=== PATIENT | male | born 1950 | race Two or more races ===

== ENCOUNTER 2017-02-15 12:27 | Inpatient (IN) | payer BC ==
--- NOTE | ~2017-02-15 | DS ---
Discharge Summary [facility] [address] [place]. [address] NAME: MILENA PRETTY : 50 STATUS : DIS IN PAT#: [id number] AGE: 66 ADM/REG DATE : 02/15/17 MR#: [id number] REPORT SERV DATE: 02/19/17 DICTATED BY: SYEDA MORENO DATE: 02/18/17 REPORT STATUS : Draft TRANSCRIBED BY: MODDivina DATE: 02/18/17 ADMISSION DATE: 02/15/2017 DISCHARGE DATE: 02/18/2017 DIAGNOSES OF DISCHARGE: 1. Likely nasal vestibulitis with abscess and cellulitis, improving and resolving with medical treatment. 2. Diabetes type 2, insulin dependent. 3. Hypertension. 4. Hyperlipidemia. 5. Obesity. CONSULTANTS ON THE CASE: Dr. Blane Liu. PROCEDURES DONE DURING THIS HOSPITALIZATION: None. TESTS DONE DURING THIS HOSPITALIZATION: Include the face CT performed on 02/15/2017 showing a 6.6 cm/3 cm focal regional soft tissue thickening with ill-defined borders anterior to the maxilla that encases the anterior nasal spine. There is a small erosion along the left side of the nasal spine with diagnoses differential including infection, inflammation, or carcinoma. Biopsy has been recommended. Mild sinusitis and prior dental surgery with reimplantation of the tooth that has been a screw extending into the left maxillary sinus. Also, the patient did have blood cultures that have been performed on admission, which remain negative at discharge. Nasal cultures grew extremely sparse growth of staph species agglutinate negative likely colonization. Also, his hemoglobin A1c was 6.7. His procalcitonin level was less than 0.05. His lactate level was 1.9, white count was 17.3 at admission and 13.2 at discharge. INR 1.2. HOSPITAL COURSE: This is a very pleasant 66 years old gentleman, who is a patient of Dr. Garo Mckeon, his primary care provider, presenting to [facility] with sudden onset of facial swelling, tenderness, and also some intermittent drainage from the left nasal vestibule, purulent in nature that has been progressing over the couple of days prior to admission. He went to the emergency room, where he has been found to have extensive anterior and midfacial pain around the columella of the nose in the nasal vestibular spine and the area of the maxillary spine as well. He underwent a CT scan in the emergency room showing some bone involvement around the paranasal sinus area and the crest. He has been placed on antibiotics Zosyn and vancomycin, and admitted to Hospitalist Service for further evaluation and treatment. For further details, please see history and physical of Dr. Daniel Douglas. The patient has been seen in consult by ENT, Dr. Blane Liu, who evaluated the patient and after reviewing the patient as well as the CT scan and with clinical symptoms and imaging. He suspected that the patient has an acute nasal vestibular abscess that is draining and resolving with medical treatment and initially IV antibiotics. Some mupirocin ointment has been added to the nasal vestibule b.i.d. and recommendation for him was to allow the inflammation and infections to cool down and reassess the area to ensure that the areas of the bony changes and edema noted on the CT scan were just inflammatory related and he has been planing to follow up in his office as an outpatient. On 02/18/2017, the patient Discharge Summary [address] [address] NAME: JONOCECILMILENA MCCULLOUGH : 50 STATUS : DIS IN PAT#: [id number] AGE: 66 ADM/REG DATE : 02/15/17 MR#: [id number] REPORT SERV DATE: 02/19/17 DICTATED BY: SYEDA MORENO DATE: 02/18/17 REPORT STATUS : Draft TRANSCRIBED BY: BJ DATE: 02/18/17 has been ready for discharge home from the ENT standpoint with followup during this week in his office. MEDICATIONS AT DISCHARGE: Would include his home medications, which are aspirin 81 p.o. daily, Januvia 100 p.o. daily, also Flonase nasal spray two sprays each nostril b.i.d., Amaryl 4 mg p.o. daily, metformin 500 p.o. daily, Levemir 35 units at bedtime, lisinopril 10 mg p.o. daily, Bactroban, mupirocin nasal ointment apply to nasal vestibule with Q-tip b.i.d. for 14 days, Prilosec 40 mg p.o. daily, Pravachol 40 mg p.o. daily, Lyrica 150 p.o. three times a day, Spiriva HandiHaler one inhalation daily, Atarax 50 mg p.o. daily, metformin 1000 p.o. with breakfast and supper, Symbicort two puff inhalations b.i.d., betaxolol 20 mg p.o. daily, indapamide 1.25 mg p.o. daily, alpha lipoic acid 200 p.o. t.i.d., multivitamins. Also, the patient is going to be discharged on Augmentin 875 mg p.o. b.i.d. for 10 days, Bactrim double strength one tablet p.o. b.i.d. for 10 days and mupirocin ointment apply to nasal vestibule with Q-tip b.i.d. for 14 days, hydrocodone APAP 5/325 mg one tablet every four hours p.r.n. pain. We will arrange primary care provider followup with Dr. Garo Mckeon, PCP, in one week after discharge as well as followup appointment with Dr. Blane Liu, ENT, this week on Saturday per ENT recommendation. That has been discussed extensively with the patient. All the questions have been answered in full. I have spent more than 30 minutes at discharging the patient, Wendy Yao, medication reconciliation, discharge summary, discharge instruction, and written prescriptions as well. CF/MODL Syeda Moreno M.D. / [id number] CC: Margo Bond M.D.
--- NOTE | ~2017-02-15 | CN ---
Consultation Report [facility] [address] [facility] [place]. [address] NAME: MILENA PRETTY : 50 STATUS : ADM IN [facility]#: [id number] AGE: 66 ADM/REG DATE : 02/15/17 MR#: [id number] REPORT SERV DATE: 02/16/17 DICTATED BY: BERT HOUSE DATE: 02/16/17 REPORT STATUS : Draft TRANSCRIBED BY: BJ DATE: 02/16/17 HOSPITAL CONSULTATION DATE OF CONSULTATION: 02/16/2017 CHIEF COMPLAINT: Facial cellulitis, nasal vestibulitis with abscess. HISTORY OF PRESENT ILLNESS: 66-year-old [place] gentleman, who had a sudden onset of facial swelling and tenderness, also with some intermittent drainage from the left nasal vestibule purulent in nature. This progressed over the next several days and he was additionally seen in the emergency room, where he was noted to have exquisite anterior mid facial pain around the columella of the nose in the nasal vestibular spine, area of the maxillary spine. He underwent CT scanning in the emergency room showing some bony involvement around the paranasal sinus area in the nasal crest. There was also ring enhancing hypodensity right at the maxillary spine. He was started on vanc and Zosyn and home medications including those for his diabetes. He was admitted for observation. PAST MEDICAL HISTORY: Hyperlipidemia, obesity, COPD, diabetes, hypercholesterolemia. MEDICATIONS: Aspirin, B complex, Betaxolol, budesonide, fluticasone, glimepiride, hydralazine, indapamide, insulin, lisinopril, metformin, omeprazole, pravastatin, pregabalin, sitagliptin or Januvia and tiotropium bromide inhaler. ALLERGIES: NO KNOWN DRUG ALLERGIES. SOCIAL HISTORY: Lives with his . History of tobacco use, but none currently. No alcohol or illicit drug use. FAMILY HISTORY: Noncontributory. REVIEW OF SYSTEMS: Nasal tenderness, improved. PHYSICAL EXAMINATION: GENERAL: He is a pleasant gentleman, in no acute distress. He is obese. VITAL SIGNS: Blood pressure 120/90, pulse is 94, respirations 18, and temperature 99. HEENT: In general, his ears are normal. His nose has some crusting bilaterally more on the left side than on the right, with some mild erythema, and tenderness along the columella in the floor of the left nasal vestibule. There is caking and drying of purulent crusting along the floor of the left nasal vestibule in the cartilaginous caudal septum. There is some edema at the maxillary crest and with bimanual palpation of the upper lip at the columella maxillary crest that is slightly tender, but much improved by his report compared to yesterday and the day before. His throat is clear. NECK: His neck is nontender without adenopathy. Consultation Report [place] [id number] [facility] [place]. [address] NAME: MILENA PRETTY : 50 STATUS : ADM IN [facility]#: [id number] AGE: 66 ADM/REG DATE : 02/15/17 MR#: [id number] REPORT SERV DATE: 02/16/17 DICTATED BY: BERT HOUSE DATE: 02/16/17 REPORT STATUS : Draft TRANSCRIBED BY: BJ DATE: 02/16/17 DIAGNOSTIC DATA: CT scan of the sinus as mentioned in the CT report appears to be related to inflammation and abscess, and there is some maxillary sinus inflammation as well. White blood cell count from today is pending. IMPRESSION: A 66-year-old male, with diabetes, hyperlipidemia, obesity, and sudden onset of facial swelling, with clinical symptoms and imaging consistent with an acute nasal vestibular abscess that is draining and resolving with medical therapy, vancomycin and Zosyn. I recommend continuing with this and adding mupirocin ointment to the nasal vestibule b.i.d. into both sides. I would allow for the inflammation and infection to cool down and then reassess this area to ensure the areas of bony changes and edema noted on the CT scan or just inflammatory related and this can be followed up in the office as an outpatient. PH/MODL Bert House M.D. / [id number] CC: Margo Bond JON H.
--- NOTE | ~2017-02-15 | HP ---
History And Physical [place] [id number] [place]. [address] NAME: MILENA PRETTY : 50 STATUS : ADM IN [facility]#: [id number] AGE: 66 ADM/REG DATE : 02/15/17 MR#: [id number] REPORT SERV DATE: 02/15/17 DICTATED BY: ARPITA DUTTON DATE: 02/15/17 REPORT STATUS : Draft TRANSCRIBED BY: BJ DATE: 02/15/17 DATE OF ADMISSION: 02/15/2017 REASON FOR ADMISSION: Facial cellulitis. HISTORY OF PRESENT ILLNESS: This is a 66-year-old white male, [place], who lives in the [place] here now. 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 He has a son who has a girl from [place]. He lives in [place]. He has had about four days history of left facial swelling. He woke with terrible pain in the anterior face around the orbit on the left side. He came to the emergency room. He is seen by Donald, nurse practitioner, in the emergency room and subjected to CT scan of the orbits, was found to have some bony involvement in the paranasal area. He was started on IV antibiotics in the emergency room and the hospital service was called to assist with admission for continued treatment and further things that may be necessary for the resolution of this problem. PAST MEDICAL HISTORY: He has longstanding history of hyperlipidemia and obesity. He does have COPD and quit smoking cigarettes in the past. MEDICATIONS: His home medications are being identified now. He does admit to pravastatin and fish oil for his hyperlipidemia. He does have diabetes. Those medications will be identified. He is a patient Dr. Garo Mckeon. SOCIAL HISTORY: He is , lives with . They have grandchildren. He quit smoking cigarettes several years ago after smoking for a long time. He worked with [employer] and was consumer of tobacco products in the past. No alcohol history given. He does not attend the [employer] nor have any spiritual thoughts. FAMILY HISTORY: He has one son who is alive and well. He had one sister who is . Diabetes and high blood pressure ran in the family. REVIEW OF SYSTEMS: No chest pain or shortness of breath, only facial pain, swelling around the eye, no double vision. No bad teeth; however, he does have dental implants. No diarrhea, abdominal complaints, vomiting, or nausea. He does not know any fever or chills. His white count was up to 17,000. No anemia or other chronic illnesses are related. The remainder of the review of systems is negative. PHYSICAL EXAMINATION: GENERAL: Obese, white [place] male in no acute distress. VITAL SIGNS: Blood pressure initially 120/90 with a heart rate of 94, respiratory rate 18, oxygen saturation 92%. His temperature was 99.0 initially. Vancomycin will be given in the emergency room. HEENT: EOMI. Sclerae clear. Conjunctivae pink. Pupils are round and reactive to light. History And Physical [address] [address] NAME: MILENA PRETTY : 50 STATUS : ADM IN [facility]#: [id number] AGE: 66 ADM/REG DATE : 02/15/17 MR#: [id number] REPORT SERV DATE: 02/15/17 DICTATED BY: ARPITA DUTTON DATE: 02/15/17 REPORT STATUS : Draft TRANSCRIBED BY: BJ DATE: 02/15/17 He does have periorbital edema on the left side. Pharynx is clear. He has good dentition, though the information is he had dental implants. NECK: No bruit. No JVD. CHEST: Clear to A and P. HEART: Regular S1, S2 without murmur, gallop, or click. ABDOMEN: Firm. No landmarks are palpable. Bowel sounds are positive. EXTREMITIES: Have 1+ pitting edema at the ankles bilaterally with distal pulses that are not palpable through the dorsalis pedis, posterior tibial. NEUROLOGIC: He withdraws to plantar stimulation. Drilling Inspector equal and symmetric bilaterally. Coordination intact. No tremor. He is able to stand and walk unaided. His ufpymk-us-[id number] exam and rapid alternating movements are intact bilaterally. Sensory and motor are grossly intact bilaterally. LYMPHATICS: There is no adenopathy. Tonsils are normal midline in the midline. There is a 6 x 3 focal region of soft tissue thickening in the ill-defined borders anterior to the maxilla that encases the anterior nasal spine. There is erosion along the left subnasal spine. Biopsy is recommended. There were no additional masses or lesions or adenopathy. He has mild sinusitis with obstruction of the infundibulum of the ostial-meatal complex. Prior dental implants with a screw extending into the left maxillary sinus. LABORATORY DATA: Lactate was 1.9. The BMP showed a glucose of 241, sodium 140, potassium 3.7, chloride 100, CO2 33, BUN 14, creatinine 1.04, calcium was 9, white count 17.3 thousand, hemoglobin 12.9, hematocrit 38.0, and the platelet count was 202,000, INR 1.2. ASSESSMENT: 1. Facial cellulitis with nasal sinus bony involvement. 2. Possible nasal tumor versus infection. 3. Leukocytosis consistent with infection. 4. Hypertension. 5. Diabetes type 2, uncontrolled. Blood sugar 241. 6. Chronic obstructive pulmonary disease from cigarette smoking, number reformed. 7. Hyperlipidemia, on pravastatin and fish oil. PLAN: Treat with broad-spectrum antibiotics including vancomycin and anti-Pseudomonas drug, will choose Zosyn if not penicillin allergic. Consult ENT for possible nasal bone biopsy. He desires to know the length of time he would be in the hospital. I believe, probably at least three days of IV antibiotics initially and assess response. DB/MODL Arpita Dutton M.D. / [id number] History And Physical [address] [address] NAME: MILENA PRETTY : 50 STATUS : ADM IN [facility]#: [id number] AGE: 66 ADM/REG DATE : 02/15/17 MR#: [id number] REPORT SERV DATE: 02/15/17 DICTATED BY: ARPITA DUTTON DATE: 02/15/17 REPORT STATUS : Draft TRANSCRIBED BY: MODL DATE: 02/15/17 CC: Margo Villegas JON H. [facility], M.D.
[2017-02-15 11:04] LABS: BASOPHILS 0.1 %; BASOPHILS ABSOLUTE 0.01 10/3/uL (0.0-0.16); EOSINOPHILS 2.2 %; EOSINOPHILS ABSOLUTE 0.39 10/3/uL (0.0-0.53); HEMOGLOBIN 12.9 g/dL (13.6-17.8); IMMATURE GRANULOCYTES 0.5 %; IMMATURE GRANULOCYTES ABSOLUTE 0.09 10/3/uL (0.0-0.11); LYMPHOCYTES ABSOLUTE 1.38 10/3/uL (0.67-4.30); MEAN CORPUS HGB CONC 33.9 g/dL (32.0-36.0); MEAN CORPUSCULAR HEMOGLOB 32.4 pg (26.0-34.0); MEAN CORPUSCULAR VOLUME 95.5 fL (80-100); MEAN PLATELET VOLUME 11.9 fL (9.2-13.0); MONOCYTES 5.8 %; NEUTROPHILS 83.4 %; NEUTROPHILS ABSOLUTE 14.47 10/3/uL (2.02-8.40); NUCLEATED RED BLOOD CELLS 0.1 /100WBC (0-0); PLATELET COUNT 202 10/3/uL (150-400); RBC DISTRIBUTION WIDTH 18.2 % (12.0-16.0); RED CELL COUNT 3.98 10/6/uL (4.7-6.1)
[2017-02-15 11:05] LABS: ER CBC TAT 0 Hrs 10 Mins; MANUAL DIFF NO %; WHITE BLOOD CELLS 17.3 10/3/uL (4.5-10.5)
[2017-02-15 11:10] LABS: INTERNATIONAL NORMAL RATI 1.2 UNITS (-); PARTIAL THROMBO TIME 36.8 SEC (22.5-37.2); PROTIME (NOT ORD) 14.7 SEC (12.0-14.5)
[2017-02-15 11:15] LABS: CHLORIDE, SERUM 100 MMOL/L (96-112); CREATININE 1.04 MG/DL (0.70-1.30); GFR AFRICAN AMERICAN 86 ML/MIN (>=60); GFR NON AFRICAN AMERICAN 74 ML/MIN (>=60); POTASSIUM, SERUM 3.7 MMOL/L (3.5-5.3); SODIUM, SERUM 140 MMOL/L (135-148)
[2017-02-15 11:16] LABS: BUN (BLOOD UREA NITROGEN) 14 MG/DL (6-23); CO2 (CARBON DIOXIDE) 33 MMOL/L (24-34); GLUCOSE, SERUM 241 MG/DL (60-99)
[2017-02-15 11:20] LABS: LACTATE 1.9 MMOL/L (0.3-2.4)
[~2017-02-15 12:27] MED LIST: AMARYL2 PO; ASAB PO; ATARAX50B PO; FESO4 PO; FISH-EPA1000 MG PO; FLOMAX4; FLONASE NAS; GLUCPH8 PO; IRON325 MG PO; JANUVIA100 MG PO; LEVEMIR SC; LORTAB 5; LOZOLTAB PO; LYRICA100 MG PO; MAALOX PO; MICRO-K10 MEQ PO; MIRALAXPKT PO; NORCO1 TA1 PO; P20 PO; PRAVACHOL40 MG PO; PRIN10 PO; PROAIR HFA INH; SOLARAZE3 %/W TOP; SPIRIVA INH; SURBEX/C1 TAB PO; SYMBICORT 160/41 INH INH; [UNRECOGNIZED DRUG - CODE] PO; [UNRECOGNIZED DRUG - OTHER] PO
[2017-02-15] MEDS ORDERED: GLUCOPHAGE1000 MG PO (13:04)
[2017-02-15] MEDS ORDERED: GLUCPH PO (13:04)
[2017-02-15] MEDS ORDERED: JANUVIA100 MG PO (13:05)
[2017-02-15] MEDS ORDERED: AMARYL4 PO (13:05)
[2017-02-15] MEDS ORDERED: INDAPAMIDE1.25 MG PO (13:08)
[2017-02-15] MEDS ORDERED: [UNRECOGNIZED DRUG - CODE] PO (13:08)
[2017-02-15] MEDS ORDERED: PRIN10 PO (13:08)
[2017-02-15] MEDS ORDERED: LEVEMIR SC (13:08)
[2017-02-15] MEDS ORDERED: SYMBICORT 160/41 INH INH (13:09)
[2017-02-15] MEDS ORDERED: ASAB PO (13:09)
[2017-02-15] MEDS ORDERED: SPIRIVA INH (13:09)
[2017-02-15] MEDS ORDERED: PRAVACHOL40 MG PO (13:09)
[2017-02-15] MEDS ORDERED: LYRICA150 MG PO (13:10)
[2017-02-15] MEDS ORDERED: FLONASE NAS (13:10)
[2017-02-15] MEDS ORDERED: ATARAX50B PO (13:10)
[2017-02-15] MEDS ORDERED: PRILOSEC40 MG PO (13:11)
[2017-02-15] MEDS ORDERED: ALPHA LIPOIC ACID PO (13:11)
[2017-02-15] MEDS ORDERED: SUPER B COMP PO (13:11)
[2017-02-15 16:35] LABS: PROCALCITONIN <0.05 ng/mL (<0.5)
[2017-02-16 05:23] LABS: HEMATOCRIT 38.9 % (40.0-51.0); HEMOGLOBIN 12.7 g/dL (13.6-17.8); MEAN CORPUS HGB CONC 32.6 g/dL (32.0-36.0); MEAN CORPUSCULAR HEMOGLOB 31.5 pg (26.0-34.0); MEAN CORPUSCULAR VOLUME 96.5 fL (80-100); MEAN PLATELET VOLUME 12.1 fL (9.2-13.0); PLATELET COUNT 208 10/3/uL (150-400); RBC DISTRIBUTION WIDTH 18.5 % (12.0-16.0); RED CELL COUNT 4.03 10/6/uL (4.7-6.1); WHITE BLOOD CELLS 16.3 10/3/uL (4.5-10.5)
[2017-02-16 05:25] LABS: MANUAL DIFF YES %
[2017-02-16 06:16] LABS: ANISOCYTOSIS 1+ (5-10/OIF) (0-5/OIF); BAND NEUTROPHILS 2 %; EOSINOPHILS 3 %; EOSINOPHILS ABSOLUTE (CALC) 0.49 10/3/uL (0.0-0.53); LYMPHOCYTES 8 %; MONOCYTES 5 %; MONOCYTES ABSOLUTE (CALC) 0.82 10/3/uL (0.21-1.20); NEUTROPHILS ABSOLUTE (CALC) 13.69 10/3/uL (2.02-8.40); PLATELET ESTIMATE ADQ (ADEQUATE); RBC MORPHOLOGY ABN (NORMAL); SEGMENTED NEUTROPHIL (0) 82 %; TOTAL NUCLEATED CELLS 100
[2017-02-17 06:50] LABS: BASOPHILS 0.1 %; BASOPHILS ABSOLUTE 0.01 10/3/uL (0.0-0.16); EOSINOPHILS 2.7 %; EOSINOPHILS ABSOLUTE 0.37 10/3/uL (0.0-0.53); HEMATOCRIT 36.5 % (40.0-51.0); HEMOGLOBIN 11.9 g/dL (13.6-17.8); IMMATURE GRANULOCYTES 0.5 %; IMMATURE GRANULOCYTES ABSOLUTE 0.07 10/3/uL (0.0-0.11); LYMPHOCYTES 11.4 %; LYMPHOCYTES ABSOLUTE 1.56 10/3/uL (0.67-4.30); MEAN CORPUS HGB CONC 32.6 g/dL (32.0-36.0); MEAN CORPUSCULAR HEMOGLOB 31.4 pg (26.0-34.0); MEAN CORPUSCULAR VOLUME 96.3 fL (80-100); MEAN PLATELET VOLUME 11.8 fL (9.2-13.0); MONOCYTES 7.1 %; MONOCYTES ABSOLUTE 0.97 10/3/uL (0.21-1.20); NEUTROPHILS 78.2 %; NEUTROPHILS ABSOLUTE 10.73 10/3/uL (2.02-8.40); PLATELET COUNT 202 10/3/uL (150-400); RBC DISTRIBUTION WIDTH 18.4 % (12.0-16.0); RED CELL COUNT 3.79 10/6/uL (4.7-6.1); WHITE BLOOD CELLS 13.7 10/3/uL (4.5-10.5)
[2017-02-17 06:51] LABS: MANUAL DIFF NO %
[2017-02-17 07:00] LABS: BUN (BLOOD UREA NITROGEN) 14 MG/DL (6-23); CALCIUM, SERUM 8.8 MG/DL (8.5-10.4); CHLORIDE, SERUM 101 MMOL/L (96-112); CO2 (CARBON DIOXIDE) 33 MMOL/L (24-34); CREATININE 0.91 MG/DL (0.70-1.30); GFR AFRICAN AMERICAN 101 ML/MIN (>=60); GFR NON AFRICAN AMERICAN 88 ML/MIN (>=60); POTASSIUM, SERUM 3.7 MMOL/L (3.5-5.3); SODIUM, SERUM 140 MMOL/L (135-148)
[2017-02-17 07:01] LABS: GLUCOSE, SERUM 130 MG/DL (60-99)
[2017-02-18 06:42] LABS: HEMATOCRIT 39.8 % (40.0-51.0); HEMOGLOBIN 13.1 g/dL (13.6-17.8); MEAN CORPUS HGB CONC 32.9 g/dL (32.0-36.0); MEAN CORPUSCULAR HEMOGLOB 31.8 pg (26.0-34.0); MEAN CORPUSCULAR VOLUME 96.6 fL (80-100); MEAN PLATELET VOLUME 11.9 fL (9.2-13.0); PLATELET COUNT 234 10/3/uL (150-400); RBC DISTRIBUTION WIDTH 17.8 % (12.0-16.0); RED CELL COUNT 4.12 10/6/uL (4.7-6.1); WHITE BLOOD CELLS 13.2 10/3/uL (4.5-10.5)
[2017-02-18 06:43] LABS: BUN (BLOOD UREA NITROGEN) 14 MG/DL (6-23); CALCIUM, SERUM 9.4 MG/DL (8.5-10.4); CHLORIDE, SERUM 102 MMOL/L (96-112); CO2 (CARBON DIOXIDE) 30 MMOL/L (24-34); CREATININE 0.91 MG/DL (0.70-1.30); GFR AFRICAN AMERICAN 101 ML/MIN (>=60); GFR NON AFRICAN AMERICAN 88 ML/MIN (>=60); SODIUM, SERUM 138 MMOL/L (135-148)
[2017-02-18 06:44] LABS: GLUCOSE, SERUM 179 MG/DL (60-99); MANUAL DIFF YES %
[2017-02-18 06:55] LABS: BAND NEUTROPHILS 7 %; EOSINOPHILS 3 %; IMMATURE GRANS ABSOLUTE (CALC) 0.26 10/3/uL (0.0-0.11); LYMPHOCYTES 8 %; LYMPHOCYTES ABSOLUTE (CALC) 1.06 10/3/uL (0.67-4.30); METAMYELOCYTES 2 %; MONOCYTES 2 %; MONOCYTES ABSOLUTE (CALC) 0.26 10/3/uL (0.21-1.20); NEUTROPHILS ABSOLUTE (CALC) 11.22 10/3/uL (2.02-8.40); SEGMENTED NEUTROPHIL (0) 78 %; TOTAL NUCLEATED CELLS 100
[2017-02-18 06:56] LABS: ANISOCYTOSIS 1+ (5-10/OIF) (0-5/OIF); PLATELET ESTIMATE ADQ (ADEQUATE); TEARDROP SHAPED RBCS OCC (0-2/OIF)
[2017-02-18] MEDS ORDERED: AUG875 PO (12:56)
[2017-02-18] MEDS ORDERED: BACTRONASA NAS (12:57)
[2017-02-18] MEDS ORDERED: NORCO1 TA1 PO (12:57)
[2017-02-18] MEDS ORDERED: BACTRIM DS1 TAB PO (12:57)
== END 2017-02-18 14:40 | disposition home or self-care (01) | DRG 155 ==
LOC: ER 12:27 → 4SO 14:53
PROVIDERS: Internal Medicine; Nurse Practitioner
DX: J34.89 Other specified disorders of nose and nasal sinuses (principal); L03.211 Cellulitis of face; I10 Essential (primary) hypertension; E11.9 Type 2 diabetes mellitus without complications; E78.5 Hyperlipidemia, unspecified; J32.9 Chronic sinusitis, unspecified; Z79.4 Long term (current) use of insulin; E66.9 Obesity, unspecified; Z68.39 Body mass index [BMI] 39.0-39.9, adult
CPT/HCPCS: 70486; 80048; 82962; 83036; 83605; 83735; 84145; 85025; 85610; 85730; 87040; 87070; 87205; 94640; 96365; 96375; 99284; A9270-GY; J1170; J2405; J2543; J3370